=== PATIENT | female | born 1940 | race Caucasian/White ===

== ENCOUNTER 2017-03-26 14:02 | Emergency (ER) | payer MEDICARE, BC ==
[~2017-03-26] VITALS: Ht 160 cm; Wt 69.0 kg
[2017-03-26 14:05] VITALS: BP 136/65; PULSE 71; RESP 15; TEMP 98.1; O2SAT 96
--- NOTE | 2017-03-26 14:15 | PD ---
HPI Chief Complaint: Injury Time Seen by Provider: 14:12 Travel History International Travel<30 days: No Contact w/Intl Traveler<30days: No Traveled to known affect area: No History of Present Illness HPI 76-year-old female presents the emergency department with injury to the left lateral ankle. Patient was at the local museum and stepped down in the auditorium and twisted it. Her pain was 10 over 10 at the time but now is 4 /10. Patient has history of osteoporosis. Patient denies any other injury at this time. She is having difficulty bearing weight secondary to pain in the left ankle. She states no pain in the foot. She is allergic to shellfish. PFSH Past Medical History ?: Not Social History Alcohol Use: Yes Tobacco Use: No Substance Use: No Allergies-Medications (Allergen,Severity, Reaction): Coded Allergies: Shellfish (Verified Allergy, Unknown, 03/26/17) Reported Meds & Prescriptions Reported Meds & Active Scripts Active Ibuprofen 600 Mg Tab 600 Mg PO Q8HR PRN Reported Prolia Inj (Denosumab) 60 Mg/Ml Inj 60 Mg SQ Q180D Welchol (Colesevelam HCl) 3.75 Gm Pkt 3.75 Gm PO DAILY Review of Systems Except as stated in HPI: all other systems reviewed are Neg General / Constitutional: No: Fever Eyes: No: Visual changes HENT: No: Headaches Cardiovascular: No: Chest Pain or Discomfort Respiratory: No: Shortness of Breath Gastrointestinal: No: Abdominal Pain Genitourinary: No: Dysuria Musculoskeletal: No: Pain Skin: No Rash Neurologic: No: Weakness Psychiatric: No: Depression Endocrine: No: Polydipsia Hematologic/Lymphatic: No: Easy Bruising Physical Exam Narrative GENERAL: Patient appears in mild distress. SKIN: Warm and dry. Normal color. Normal turgor. No abrasion. No open wound. No rash. HEAD: Atraumatic. Normocephalic. EYES: Pupils equal and round. No scleral icterus. No injection or drainage. ENT: No nasal bleeding or discharge. Mucous membranes pink and moist. Pharynx is clear. NECK: Trachea midline. Supple nontender. CARDIOVASCULAR: Regular rate and rhythm. RESPIRATORY: No accessory muscle use. Clear to auscultation. Breath sounds equal bilaterally. MUSCULOSKELETAL: Extremities without clubbing, cyanosis, or edema. No obvious deformities. Patient has mild swelling to the left lateral malleolus with localized tenderness. No tenderness to the left foot. Range of motion is limited secondary to pain. Neurovascular exam distally is normal. NEUROLOGICAL: Awake and alert. No obvious cranial nerve deficits. Motor grossly within normal limits. Five out of 5 muscle strength in the arms and legs. Normal speech. PSYCHIATRIC: Appropriate mood and affect; insight and judgment normal. Data Data Last Documented VS Vital Signs Date Time Temp Pulse Resp B/P Pulse Ox O2 Delivery O2 Flow Rate FiO2 03/26/17 14:05 98.1 71 15 136/65 96 Orders Ankle, Complete ([id number]) (03/26/17 14:15) Splint Or Brace Apply/Monitor (03/26/17 14:39) Crutches (03/26/17 14:39) [facility] Medical Decision Making Medical Screen Exam Complete: Yes Emergency Medical Condition: Yes Differential Diagnosis Left ankle pain. Left ankle sprain. Left ankle fracture. Narrative Course Patient is medically stable at time of exam. X-ray of the left ankle is ordered. X-rays of the left ankle show no acute fracture or dislocation. Patient is placed in a stirrup ankle splint and crutches. Patient was sent home on ibuprofen 600 mg 3 times a day with food. 40. Patient is to bear weight as tolerated and follow with her primary care physician to ensure improvement. Patient can return to the ED with worsening symptoms if necessary. Diagnosis Primary Impression: SPRAIN OF UNSPECIFIED LIGAMENT OF LEFT ANKLE, INIT ENCNTR Referrals: Primary Care Physician as needed Patient Instructions: Ankle Sprain (ED), Ankle Stirrup Splint (ED), Crutch Instructions (ED), General Instructions Additional Instructions: X-rays of the left ankle show no acute fracture or dislocation. Patient is placed in a stirrup ankle splint and crutches. Patient was sent home on ibuprofen 600 mg 3 times a day with food. 40. Patient is to bear weight as tolerated and follow with her primary care physician to ensure improvement. Patient can return to the ED with worsening symptoms if necessary. Med/Other Pt SpecificInfo: Prescription(s) given Scripts Ibuprofen 600 Mg [id number] Mg PO Q8HR PRN (Pain/Inflammation) #40 TAB Prov:Floyd Riddle MD 03/26/17 Disposition: 01 DISCHARGE HOME Condition: Stable Jamie Aguilar March 26, 2017 14:14
[2017-03-26] MEDS ORDERED: COLE1PAK PO (14:19)
[2017-03-26] MEDS ORDERED: DENO60P SQ (14:19)
[2017-03-26] MEDS ORDERED: IBUP-232 PO (14:41)
--- NOTE | 2017-03-26 15:12 | RADHPO ---
EXAM DATE/TIME: 03/26/2017 14:20 [facility] COMPARISON: No previous studies available for comparison. INDICATIONS : Left ankle pain after twisting injury earlier today. MEDICAL HISTORY : Osteoporosis. Hypercholesterolemia. SURGICAL HISTORY : None. ENCOUNTER: Initial ACUITY: 1 day PAIN SCORE: 4/10 LOCATION: Left ankle, lateral malleolus. FINDINGS: 3 views of the left ankle. Bone alignment within normal limits. No evidence of fracture. Ankle morti se intact. Small plantar calcaneal spur. CONCLUSION: No evidence of fracture. Dane Hayes MD on March 26, 2017 at 15:10 Board Certified Radiologist. This report was verified electronically.
== END 2017-03-26 15:22 | disposition home or self-care (01) ==
LOC: PHED 14:02 → PHEFT 15:22
DX: S93.402A Sprain of unspecified ligament of left ankle, initial encounter (principal); X50.1XXA Overexertion from prolonged static or awkward postures, initial encounter; Y93.01 Activity, walking, marching and hiking; Y92.251 Museum as the place of occurrence of the external cause; Y99.8 Other external cause status
CPT/HCPCS: 73610; 99283; E0113; L1906